=== PATIENT | male | born 1995 | race Caucasian/White ===

== ENCOUNTER 2021-06-01 10:57 | Outpatient (REF) | payer BC, SELFPAY ==
[2021-06-01 12:42] LABS: COVID-19 Test Positive (Negative)
== END 2021-06-01 10:58 | disposition home or self-care (01) ==
LOC: HO.LAB 10:57
PROVIDERS: Visit Provider Internal Medicine
DX: Z20.822 Contact with and (suspected) exposure to COVID-19 (principal)
CPT/HCPCS: 87635; C9803

== ENCOUNTER 2023-08-09 14:18 | Outpatient (AMB) | payer BC, SELFPAY ==
--- NOTE | 2023-08-09 14:32 | A.OFFPC_ITS ---
Vital Signs 08/09/23 14:34 Height 5 ft 11.06 in Weight 189 lb 4 oz BMI 26.3 BP 120/82 Blood Pressure Location Lt brachial Position Sitting Pulse 55 Pulse Source Pulse Oximeter Pulse Oximetry (%) 98 Oxygen Delivery Method Room Air Intake Visit Reasons: R/S from 07/05/23/ Intake Note: Patient is a new patient here to establish care for Blood in the stool and lower back pain. Transferring care from Dr. Denise. Medical records have been requested today. Process Controller Required: No Accompanied by: Self / Same As Patient Allergies No Known Allergies Allergy (Verified 08/09/23 14:49) Medication List - Last Reconciled 08/09/23 by Vik Lamar PA-C No Known Home Meds Tobacco use date assessed: 08/09/23 Dental Screening Dental Screen Date: 08/09/23 Did you have a dental visit in the last 12 months?: Yes Did you have a dental problem in the last 6 months where you did not have access to dental care?: No Was dental information given to patient?: Patient has dentist HPI R/S from 07/05/23/PE HPI Details Patient is a 28-year-old male here today for an annual physical. Patient does not have any significant past medical history. 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 He reports over the last few weeks noting some bright red blood per rectum. He does admit to having some constipation. He also reports having some localized lower midline back pain without any radicular symptoms. VAccine :report he is up to Tdap, UTD with COVID vaccine. 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 1. Little interest or pleasure in doing things: not at all 2. Feeling down, depressed, or hopeless: not at all 3. Trouble falling or staying asleep, or sleeping too much: not at all 4. Feeling tired or having little energy: not at all 5. Poor appetite or overeating: not at all 6. Feeling bad about yourself - or that you are a failure or have let yourself or your family down: not at all 7. Trouble concentrating on things, such as reading the newspaper or watching television: not at all 8. Moving or speaking so slowly that other people could have noticed. Or the opposite - being so fidgety or restless that you have been moving around a lot more than usual: not at all 9. Thoughts that you would be better off or of hurting yourself in some way: not at all Total score: 0 Depression Screening Interpretation: Negative Depression Screening Done: Yes 84024 - PHQ-9 Billing: Yes Source: Developed by Drs. Marcellus Mejia, Nicol Champion, Bill Buchanan and colleagues, with an educational chelsy from [facility]. Thrive Questionnaire Date Thrive assessed: 08/09/23 I am a: Patient What is your living situation today?: I have a steady place to live Within the past 12 months, did the food you bought not last and you didn't have the money to get more?: Never true Within the past 12 months, did you worry whether your food would run out before you got money to buy more?: Never true Do you have trouble paying for medicines?: No Do you have trouble getting transportation to medical appointments?: No Do you have trouble paying your heating and electricity bill?: No Do you have trouble taking care of your child, family member or friend?: No Do you have trouble with day-to-day activities such as bathing, preparing meals, shopping, managing finances, etc.?: No Are you currently unemployed and looking for a job?: No Are you interested in more education?: No Please select the resources that you would like help with: None Currently or been in a relationship where the following occur: no concerns reported THRIVE Score: 0 AUDIT C Alcohol Use Questionnaire (AUDIT-C) 1. How often do you have a drink containing alcohol?: Monthly or less 2. How many drinks containing alcohol do you have on a typical day when you are drinking?: 1 or 2 3. How often do you have six or more drinks on one occasion?: Never Total Score: 1 CRYSTAL-7 AMB Questionnaire CRYSTAL-7 Date CRYSTAL - 7 assessed: 08/09/23 Feeling nervous, anxious, or on edge: 0 = Not at all Not being able to stop or control worryin = Not at all Worrying too much about different things: 0 = Not at all Trouble relaxin = Not at all Being so restless that it is hard to sit still: 0 = Not at all Becoming easily annoyed or irritable: 0 = Not at all Feeling afraid as if something awful might happen: 0 = Not at all Total CRYSTAL-7 score (0-4 normal; 5-9 mild; 10-14 moderate; 15-21 severe): 0 Source: Developed by Drs. Marcellus Mejia, Nicol Champion, Bill Buchanan and colleagues, with an educational chelsy from [facility]. CRYSTAL-7 Assessment Billing CRYSTAL-7 Assessment Tool: CRYSTAL-7 Assessment 44233 Review of Systems Const Denies body aches, Denies chills, Denies excessive sweating, Denies fatigue, Denies fever(s) and Denies headache(s) Eyes Denies blurry vision ENT Denies dysphagia, Denies vertigo, Denies dizziness, Denies headache(s), Denies hearing loss and Denies tinnitus Card Denies chest pain, Denies chest pain with activity, Denies syncope, Denies irregular heart rhythm and Denies dyspnea Resp Denies chest congestion, Denies cough, Denies hemoptysis, Denies dyspnea and Denies wheezing GI Denies abdominal pain, Denies melena, Denies hematochezia, Denies coffee ground emesis, Denies dysphagia, Denies diarrhea, Denies nausea and Denies vomiting Denies difficulty urinating, Denies dysuria, Denies urinary frequency, Denies urinary hesitancy and Denies urinary urgency Musc Denies arthralgias, Denies limited range of motion, Denies muscle cramps and Denies muscle weakness Skin/Breast Denies rash and Denies skin ulcer Neuro Denies Abnormal speech present, Denies confusion, Denies vertigo, Denies dizziness, Denies syncope, Denies headache(s), Denies memory loss and Denies seizure-like activity Psych Denies anxiety, Denies confusion, Denies depression, Denies memory loss, Denies panic attacks and Denies paranoia Endo Denies excessive sweating, Denies fatigue, Denies flushing, Denies polydipsia and Denies polyuria Aller/Immun Denies wheezing Physical exam (Primary Care) Vital Signs: Last Vital Signs Pulse 55 08/09/23 14:34 BP 120/82 08/09/23 14:34 Pulse Ox 98 08/09/23 14:34 Oxygen Delivery Method Room Air 08/09/23 14:34 BMI result Body Mass Index 26.3 Tobacco/Smoking Status: Tobacco use Status Tobacco use date assessed 08/09/23 08/09/23 14:43 Patient Tobacco Use Status Never used Tobacco 08/09/23 14:54 e-Cigarette/Vaping Use Never Used 08/09/23 14:54 PHQ-9: PHQ-9 Score PHQ-9: Total score 0 08/09/23 14:50 Depression Screening Interpretation: Negative Thrive Assessment: Date of Thrive Assessment Date Thrive assessed 08/09/23 08/09/23 14:43 Currently or been in a relationship where the following occur: no concerns reported Const General: cooperative, comfortable, no acute distress, alert and awake; No confusion Orientation/consciousness: oriented to person, oriented to place, patient oriented x3 and No confusion HENMT Head: Yes normocephalic Ears: external ears normal and TM's normal bilaterally Face and sinus: No sinus tenderness Mouth: Normal oral and palatal mucosa present and tongue normal Teeth and gingiva: dentition normal and gingiva normal Throat: Yes posterior oropharynx normal, Yes tonsils normal and Yes uvula midline Eyes Conjunctivae: conjunctivae normal Sclerae: sclerae normal Pupils: Equal, round and reactive pupils present EOM: EOMs intact bilaterally Direct Ophthalmoscopy: No no photophobia Neck Neck: Yes no lymphadenopathy, No tender and Yes no JVD Thyroid: Thyroid normal Carotids: no bruits Chest Chest palpation & inspection: no tenderness Resp Effort & Inspection: normal respiratory effort, no audible wheezes, not labored and no stridor Auscultation: no crackles, no rales, no rhonchi and no wheezes Cardio Jugular venous distension: no JVD Rate: regular rate, not bradycardic and not tachycardic Rhythm: regular rhythm Bruits: no carotid bruits Peripheral pulses: Peripheral pulses 2+ throughout GI Inspection: Yes normal to inspection, No abdominal wall ecchymosis and No visible herniation Palpation (GI): Soft to palpation, nontender, no guarding, not rigid and No hepatosplenomegaly present Auscultation: normoactive bowel sounds General: Yes no CVA tenderness Back/Spine/Pelvis Back: no CVA tenderness and No back tenderness Cervical Spine: cervical ROM normal Thoracic/Lumbar Spine: thoracic and lumbar spine normal to inspection, straight leg raise negative bilaterally, No thoraco-lumbar ROM limited and No lumbar spinal tenderness Skin Lesions: no lesions Rashes: no rashes Wounds: no wounds Neuro General: oriented to person, oriented to place, patient oriented x3, CN's II-XI intact bilaterally and No confusion Cranial nerves: Yes Equal, round and reactive pupils present and Yes Normal accommodation reflex present Cognition (Neuro): normal cognition Speech: No Abnormal speech present Gait exam (Neuro): Normal gait present Motor exam (neuro): 5/5 motor strength present throughout Extrem Right upper extremity: full ROM; no cyanosis Left upper extremity: full ROM; no cyanosis Right lower extremity: no edema Left lower extremity: no edema Psych Appearance: grossly normal Mental Status: mental status grossly normal Affect: normal affect Attitude: cooperative Thought process: Normal thought process present Assessment and Plan Assessment & Plan (1) Annual physical exam: Code(s): Z00.00 - Encounter for general adult medical examination without abnormal findings (2) Low back pain: Code(s): M54.50 - Low back pain, unspecified Qualifiers: Back pain laterality: midline Chronicity: chronic Sciatica presence: without sciatica Qualified Code(s): M54.50 - Low back pain, unspecified; G89.29 - Other chronic pain Plan: Reports a 2 month history of dull localized lower lumbar spine pain. May be related to his long periods of sitting at work. He will try to modify his sitting at work. (3) Screening for diabetes mellitus (DM): Code(s): Z13.1 - Encounter for screening for diabetes mellitus (4) Blood per rectum: Code(s): K62.5 - Hemorrhage of anus and rectum Plan: Reports some bright red blood per rectum. He does report a little bit of rectal pain when passing stool. He does admit to some constipation. 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 Advised on dual softener, increase water and fiber in his diet. Orders: Orders XR lumbar spine 4V min 08/09/23 G89.29 - Other chronic pain, M54.50 - Low back pain, unspecified Comprehensive Benedict. Panel Fast 08/09/23 Z13.1 - Encounter for screening for diabetes mellitus Complete Blood Count no Diff 08/09/23 K62.5 - Hemorrhage of anus and rectum Medications: New docusate sodium (Colace) 100 mg PO DAILY 30 caps 1RF K62.5 - Hemorrhage of anus and rectum Coding Level of Care Code New Pt Prev Care 18-39yr([id number] Diagnoses Annual physical exam Z00.00 Chronic midline low back pain without sciatica M54.50; G89.29 Back pain laterality: midline Chronicity: chronic Sciatica presence: without sciatica Screening for diabetes mellitus (DM) Z13.1 Blood per rectum K62.5 Additional Codes CRYSTAL-7 Assessment Billing - CRYSTAL-7 Assessment Tool: CRYSTAL-7 Assessment 66661 ([id number])
[2023-08-09 14:34] VITALS: BP 120/82; PULSE 55; O2SAT 98; BMI 26.3
== END 2023-08-09 15:07 | disposition home or self-care (01) ==
PROVIDERS: Visit Provider Physician Assistant
DX: Z00.00 Encounter for general adult medical examination without abnormal findings (principal); M54.50 Low back pain, unspecified; G89.29 Other chronic pain; Z13.1 Encounter for screening for diabetes mellitus; K62.5 Hemorrhage of anus and rectum
CPT/HCPCS: 99385

== ENCOUNTER 2023-08-24 14:30 | Outpatient (REF) | payer BC, SELFPAY ==
--- NOTE | ~2023-08-24 | XR_ITS ---
EXAMINATION: XR LUMBOSACRAL SPINE WITH OBLIQUES CLINICAL INFORMATION: Lower back pain. COMPARISON: None available. TECHNIQUE: AP, both oblique, and lateral views of the lumbar spine. Lateral view of the lumbosacral junction. FINDINGS: Vertebral body heights are normal. There is a very mild lumbar levoscoliosis. At L4-L5, there is mild posterior disc space narrowing. At L5-S1, there is a 7 mm anterolisthesis. A bilateral L5 spondylolysis defect is questioned. The paravertebral soft tissues are unremarkable. XR/XR lumbar spine 4V min IMPRESSION: 1. There is mild degenerative disc disease at L4-L5, and moderately severe degenerative disc disease seen at L5-S1. 2. A bilateral L5 spondylolysis defect is questioned. This could be further evaluated with CT or MRI, if clinically indicated. 3. There is a very mild lumbar levoscoliosis.
[2023-08-24 15:40] LABS: Hematocrit 43.1 % (42.0-52.0); Mean Corpuscular HGB Conc 34.8 g/dl (31.0-36.0); Mean Corpuscular Hemoglobin 29.6 pg (27.0-33.0); Mean Platelet Volume 9.7 fL (9.4-12.4); Platelet Count 221 X10*3/uL (160-400); Red Blood Count 5.07 X10*6/uL (4.60-5.80); Red Cell Distribution Width 12.4 % (11.0-16.0); White Blood Count 5.4 X10*3/uL (4.8-10.8)
[2023-08-24 16:11] LABS: Alanine Aminotransferase 17 U/L (0-40); Albumin Level 4.6 g/dL (3.5-5.0); Alkaline Phosphatase 58 U/L (39-117); Anion Gap 9 (12-20); Aspartate Amino Transferase 18 U/L (5-37); Bilirubin Total 0.7 mg/dL (0.0-1.0); Blood Urea Nitrogen 11 mg/dL (9-16); Calcium 9.3 mg/dL (8.4-10.2); Carbon Dioxide 29 mmol/L (22-29); Chloride 105 mmol/L (96-108); Estimated Glomerular Filt Rate > 60; Glucose Fasting 77 mg/dL (60-99); Potassium 3.4 mmol/L (3.3-5.1); Sodium 140 mmol/L (135-145)
== END 2023-08-24 14:31 | disposition home or self-care (01) ==
LOC: HO.XRAY 14:30
PROVIDERS: PCP Physician Assistant; Visit Provider Physician Assistant
DX: Z13.1 Encounter for screening for diabetes mellitus (principal); K62.5 Hemorrhage of anus and rectum; M54.50 Low back pain, unspecified; G89.29 Other chronic pain
CPT/HCPCS: 36415; 72110; 80053; 85027

== ENCOUNTER 2023-09-07 14:26 | Outpatient (REF) | payer BC, SELFPAY ==
[2023-09-10 13:39] LABS: Anti Nuclear Antibody Screen NEGATIVE (NEGATIVE)
[2023-09-10 14:39] LABS: Cyclic Citrullinated Peptide <16 UNITS
[2023-09-10 21:47] LABS: Anti DNA DS Antibody <1 IU/mL
[2023-09-12 07:39] LABS: HLA B27 Negative (Negative)
== END 2023-09-07 14:27 | disposition home or self-care (01) ==
LOC: HO.LAB 14:26
PROVIDERS: PCP Physician Assistant; Visit Provider Physician Assistant
DX: M51.36 Other intervertebral disc degeneration, lumbar region (principal)
CPT/HCPCS: 36415; 86038; 86200; 86225; 86812

== ENCOUNTER 2023-09-21 14:55 | Outpatient (AMB) | payer BC, SELFPAY ==
--- NOTE | 2023-09-21 14:56 | MHC.OFFVIS ---
Vital Signs 09/21/23 15:00 Height 5 ft 10 in Weight 195 lb 3 oz BMI 28.0 BP 152/86 H Blood Pressure Location Rt brachial Position Sitting Pulse 64 Pulse Source Pulse Oximeter Pulse Oximetry (%) 100 Oxygen Delivery Method Room Air Intake Visit Reasons: DISC DEGERNERATION, LUMBAR REGION Intake Note: Pain today 3/10 Rn Infusion Required: No Accompanied by: Self / Same As Patient Allergies No Known Allergies Allergy (Verified 09/21/23 14:59) HPI HPI DISC DEGERNERATION, LUMBAR REGION: Details: Patient is a 28 years old male presents today for initial evaluation of low back pain. Denies any recent trauma, injury or falls. 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 Patient reports his typical work day involves some bending, standing, walking and prolonged sitting. He also reports weight lifting, hockey, running track, football in middle and high school years, hockey and more recently restarting weight lifting after college. His back pain is localized to his low back midline area without radiation into his lower extremities. Lumbar spine xray showed mild degenerative disc disease at L4-L5, and moderately severe degenerative disc disease seen at L5-S1. A bilateral L5 spondylolysis defect is questioned. Patient has pending lumbar spine MRI and physical therapy which have not been scheduled yet. At this time, his low back pain is mild but constant, rates it at 3/10 and usually increases to 5-6/10 by the evening. Denies any conservative treatments at home. Pain affects his daily activities and functioning, sleep and social interactions. Denies any fever, chills, abdominal or groin pain, weakness, foot drop, bladder or bowel dysfunction or saddle anesthesia. Location: Lower back, midline Duration: Chronic pain since early high school Characteristics of symptom or complaint: Dull, aching, sharp, stabbing Aggravating or associated factors: Movements, lifting, twisting, bending Relieving factors: Bending, stretching, flexing forward, heating pad Treatment: Home exercise program [facility] Medical History (Updated 09/24/23 @ 08:40 by JAC Robin) Low back pain Surgical History S/P wisdom tooth extraction Family History Father History of stroke, Onset Age: 50 Paternal Grandfather Brain hemorrhage due to vascular malformation Aneurysm Social History Housing: House Alcohol intake: current Alcohol intake frequency: a few times a month Alcohol type: beer Patient Tobacco Use Status: Never used Tobacco e-Cigarette/Vaping Use: Never Used service: No Current occupational status: employed and student 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 Alert and oriented. Mood and affect appropriate. Follows and participates in conversation appropriately. Respiratory effort is unlabored. No cough. Able to transition from sit to stand unassisted. Ambulates with bilaterally normal heel strike and toe off. Back/Spine/Pelvis Other: Patient is able to walk and stand on heels and tip toes with no difficulties demonstrating good motor tone. No limping. Can flex forward to 70-75 degrees and extend to 5-10 degrees before experiencing lumbar pain. Demonstrates 5/5 strength of quadriceps bilaterally as well as flexion/dorsiflexion of bilateral feet against resistance. 2+ pedal pulses bilaterally. Straight leg rise with dorsiflexion negative bilaterally. +2 patellar and achilles reflexes bilaterally. Facet loading test positive bilaterally. Rashawn sign, Buck?s, Pelvic compression and Stinchfield tests are negative bilaterally. No groin pain with I/E hip rotations. Valsalva maneuver negative. Cervical Spine: cervical ROM normal, cervical muscular tenderness and No Cervical spine tenderness Thoracic/Lumbar Spine: thoracic and lumbar spine normal to inspection, No Thoracic/lumbar spine scar(s), Lasegue's sign negative, straight leg raise negative bilaterally, pain with thoraco-lumbar ROM, paraspinal muscle tenderness, Thoracic/lumbar scoliosis (mild), No thoracic spinal tenderness and lumbar spinal tenderness (L4-S1) Pelvis: no buttock tenderness Sacroiliac joints: bilaterally nontender Neuro General: Normal light touch and pain sensation, CN's II-XI intact bilaterally and deep tendon reflexes 2+ bilaterally Gait exam (Neuro): Normal gait present and No Assistive device used Motor exam (neuro): 5/5 motor strength present throughout, no tremor noted and Motor abnormalities not present Sensory Exam: No Sensory deficit (Neuro) Results Reviewed Results Reviewed: XR LUMBOSACRAL SPINE WITH OBLIQUES 08/24/23 CLINICAL INFORMATION: Lower back pain. FINDINGS: Vertebral body heights are normal. There is a very mild lumbar levoscoliosis. At L4-L5, there is mild posterior disc space narrowing. At L5-S1, there is a 7 mm anterolisthesis. A bilateral L5 spondylolysis defect is questioned. The paravertebral soft tissues are unremarkable. IMPRESSION: 1. There is mild degenerative disc disease at L4-L5, and moderately severe degenerative disc disease seen at L5-S1. 2. A bilateral L5 spondylolysis defect is questioned. This could be further evaluated with CT or MRI, if clinically indicated. 3. There is a very mild lumbar levoscoliosis. Assessment & Plan Assessment & Plan (1) Low back pain: Code(s): M54.50 - Low back pain, unspecified Category: Medical Qualifiers: Back pain laterality: midline Chronicity: chronic Sciatica presence: without sciatica Qualified Code(s): M54.50 - Low back pain, unspecified; G89.29 - Other chronic pain (2) Lumbar degenerative disc disease: Code(s): M51.36 - Other intervertebral disc degeneration, lumbar region Category: Medical Plan Recommend to start formal PT and establish HEP for low back pain with DDD and discogenic pain components. Avoid heavy weight lifting at this time. Pending lumbar spine MRI and PT are pending, were ordered by PCP. Discussed conservative measures for low back pain, including Tylenol, NSAIDs, head/ice therapy, gentle stretching and strengthening exercises , good posture, activity modifications, alternate sitting and standing at work, well balanced diet and adequate hydration. Patient will return to the clinic to discuss results of the MRI findings when it is done and consider interventional therapy as indicated.?Follow up as needed. Medications: New lidocaine 5% 1 patch topical DAILY 30 ea 0RF pain 30 days G89.29 - Other chronic pain, M51.36 - Other intervertebral disc degeneration, lumbar region, M54.50 - Low back pain, unspecified Coding Level of Care Code New Pt Level 4 (53734) Diagnoses Chronic midline low back pain without sciatica M54.50; G89.29 Back pain laterality: midline Chronicity: chronic Sciatica presence: without sciatica Lumbar degenerative disc disease M51.36
[2023-09-21 15:00] VITALS: BP 152/86; PULSE 64; O2SAT 100; BMI 28.0
== END 2023-09-21 15:33 | disposition home or self-care (01) ==
PROVIDERS: PCP Physician Assistant; Visit Provider Nurse Practitioner Family
DX: M54.50 Low back pain, unspecified (principal); G89.29 Other chronic pain; M51.36 Other intervertebral disc degeneration, lumbar region
CPT/HCPCS: 99204

== ENCOUNTER → 2023-09-21 14:55 | Outpatient (BNVA) | payer BC, SELFPAY | PROVIDERS: PCP Physician Assistant; Visit Provider Nurse Practitioner Family ==

== ENCOUNTER 2023-11-07 17:00 | Outpatient (RCR) | payer BC, SELFPAY ==
--- NOTE | 2023-10-05 16:37 | MHC.PT.EP ---
[facility] [place] Office [place] Office [place] Office [address] [phone] F: [phone] F: [phone] F: [phone] F: [phone] Physical Therapy Plan of Care Date of Evaluation: 10/05/23 Date of Surgery: NA Diagnosis: DEGENERATIVE DISC DISEASE Assessment: Pt IS 28 YO M REFERRED TO PT BY DIEGO QUINN WITH DDD (PER XRAYREPORT). PRESENTS WITH TIGHT HS, SOME DECREASED CORE STRENGTH AND BACK PAIN. Pt ALREADY WORKS OUT AND DOES YOGA. COULD BENEFIT FROM PT 1/WK TO REV CURRENT EXS/STRETCHES FOR MODIFICATION/IMPROVEMENT TO HELP WITH BACK PAIN Frequency and Duration: The patient will be seen 1X/WK X 4 WKS Short Term Goals: 1. INCREASED AWARENESS BACK CARE AND POSTURE 2. Pt TO PERFORM 2-3 TASKS WITH PROPER BODY MECH Snf Goals: 1. I HEP WITH DC EX PLAN 2. DECREASED BACK PAIN AT LEAST 50% WITH ADLS 3. IMPROVED MOD OSWESTRY ( AT SOC) Treatment Plan: Modalities to reduce pain, spasms and effusion. Manual therapy to restore motion and function. Therapeutic exercise to improve strength and flexibility. Neuromuscular re-education for posture and balance. Therapeutic activities to return to functional activities of daily living. Electronically signed by: MILIND MARTINEZ PT Please sign and return to therapist. Thank you for your referral.
--- NOTE | 2023-12-24 14:55 | MHC.PT.DC ---
[facility] [place] Office [place] Office [place] Office [address] [phone] F: [phone] F: [phone] F: [phone] F: [phone] Physical Therapy Discharge Report Diagnosis: DEGENERATIVE DISC DISEASE Date of Surgery: NA Date of Evaluation: 10/05/23 Date of Discharge: 11/07/23 Treatments to Date: 4 Cancellations to Date: No Shows to Date: Discharge Status: Achieved Goals Improved Function Independent with HEP Discharge Summary: PER LAST PT APPT ON 11/07/23 Pt independent w/HEP and Gym routine w/proper form Electronically signed by: MILIND MARTINEZ PT Please sign and return to therapist. Thank you for your referral.
== END 2023-12-24 14:56 | disposition home or self-care (01) ==
LOC: HO.PT 17:00
PROVIDERS: PCP Physician Assistant; Visit Provider Physician Assistant
DX: M51.9 Unspecified thoracic, thoracolumbar and lumbosacral intervertebral disc disorder (principal); M51.36 Other intervertebral disc degeneration, lumbar region
CPT/HCPCS: 97110; 97161; 97530; 97535

== ENCOUNTER 2024-08-11 14:13 | Outpatient (AMB) | payer BC, SELFPAY ==
--- NOTE | 2024-08-11 14:20 | MHC.PC.OV ---
Vital Signs 08/11/24 14:21 Height 5 ft 10 in Weight 195 lb BMI 28.0 BP 126/82 Blood Pressure Location Lt brachial Position Sitting Pulse 52 Pulse Source Pulse Oximeter Temp 97.3 F Temp Source Temporal Artery Scan Pulse Oximetry (%) 100 Oxygen Delivery Method Room Air Intake Visit Reasons: ANNUAL Intake Note: Patient is here today for a physical. Director Of Agriculture Required: No Accompanied by: Self / Same As Patient Allergies No Known Allergies Allergy (Verified 08/11/24 14:32) Medication List - Last Reconciled 08/11/24 by Vik Lamar PA-C docusate sodium (Colace) 100 mg PO DAILY lidocaine 5% 1 patch topical DAILY 30 days multivitamin 1 tab PO DAILY Tobacco use date assessed: 08/11/24 Dental Screening Dental Screen Date: 08/11/24 Did you have a dental visit in the last 12 months?: Yes Did you have a dental problem in the last 6 months where you did not have access to dental care?: No Was dental information given to patient?: Patient has dentist HPI ANNUAL HPI Details Patient is a 29-year-old male here today for an annual physical. Patient does not have any significant past medical history. Has graduated from [employer]. . Patient has no particular past medical history with the exception of lower lumbar spine vertebral disease. Has followed up with pain management in his doing well. He still is physically active and does not have to take regular medication for pain. VAccine :Needs Tdap, UTD with COVID vaccine. 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 1. Little interest or pleasure in doing things: several days 2. Feeling down, depressed, or hopeless: several days 3. Trouble falling or staying asleep, or sleeping too much: several days 4. Feeling tired or having little energy: several days 5. Poor appetite or overeating: more than half the days 6. Feeling bad about yourself - or that you are a failure or have let yourself or your family down: several days 7. Trouble concentrating on things, such as reading the newspaper or watching television: not at all 8. Moving or speaking so slowly that other people could have noticed. Or the opposite - being so fidgety or restless that you have been moving around a lot more than usual: not at all 9. Thoughts that you would be better off or of hurting yourself in some way: several days Total score: 8 Depression Screening Interpretation: Positive Depression Screening Follow-up: Existing condition and Declines treatment Depression Screening Done: Yes 75417 - PHQ-9 Billing: Yes Source: Developed by Drs. Marcellus Mejia, Nicol Champion, Bill Buchanan and colleagues, with an educational chelsy from [employer]. Thrive Questionnaire Date Thrive assessed: 08/09/24 I am a: Patient What is your living situation today?: I have a steady place to live Within the past 12 months, did the food you bought not last and you didn't have the money to get more?: Never true Within the past 12 months, did you worry whether your food would run out before you got money to buy more?: Never true Do you have trouble paying for medicines?: No Do you have trouble getting transportation to medical appointments?: No Do you have trouble paying your heating and electricity bill?: No Do you have trouble taking care of your child, family member or friend?: No Do you have trouble with day-to-day activities such as bathing, preparing meals, shopping, managing finances, etc.?: No Are you currently unemployed and looking for a job?: No Are you interested in more education?: Yes Please select the resources that you would like help with: None Currently or been in a relationship where the following occur: Controlled Emotionally THRIVE Score: 1 AUDIT C Alcohol Use Questionnaire (AUDIT-C) 1. How often do you have a drink containing alcohol?: 2-4 times a month 2. How many drinks containing alcohol do you have on a typical day when you are drinking?: 5 or 6 3. How often do you have six or more drinks on one occasion?: Monthly Total Score: 6 CRYSTAL-7 AMB Questionnaire CRYSTAL-7 Date CRYSTAL - 7 assessed: 08/09/23 Feeling nervous, anxious, or on edge: 1 = Several days Not being able to stop or control worryin = Several days Worrying too much about different things: 1 = Several days Trouble relaxin = Several days Being so restless that it is hard to sit still: 0 = Not at all Becoming easily annoyed or irritable: 2 = More than half the days Feeling afraid as if something awful might happen: 1 = Several days Total CRYSTAL-7 score (0-4 normal; 5-9 mild; 10-14 moderate; 15-21 severe): 7 Source: Developed by Drs. Marcellus Mejia, Nicol Champion, Bill Buchanan and colleagues, with an educational chelsy from [employer]. CRYSTAL-7 Assessment Billing CRYSTAL-7 Assessment Tool: CRYSTAL-7 Assessment 21698 Review of Systems Const Denies body aches, Denies chills, Denies excessive sweating, Denies fatigue, Denies fever(s) and Denies headache(s) Eyes Denies blurry vision ENT Denies dysphagia, Denies vertigo, Denies dizziness, Denies headache(s), Denies hearing loss and Denies tinnitus Card Denies chest pain, Denies chest pain with activity, Denies syncope, Denies irregular heart rhythm and Denies dyspnea Resp Denies chest congestion, Denies cough, Denies hemoptysis, Denies dyspnea and Denies wheezing GI Denies abdominal pain, Denies melena, Denies hematochezia, Denies coffee ground emesis, Denies dysphagia, Denies diarrhea, Denies nausea and Denies vomiting Denies difficulty urinating, Denies dysuria, Denies urinary frequency, Denies urinary hesitancy and Denies urinary urgency Musc Denies arthralgias, Denies limited range of motion, Denies muscle cramps and Denies muscle weakness Skin/Breast Denies rash and Denies skin ulcer Neuro Denies Abnormal speech present, Denies confusion, Denies vertigo, Denies dizziness, Denies syncope, Denies headache(s), Denies memory loss and Denies seizure-like activity Psych Denies anxiety, Denies confusion, Denies depression, Denies memory loss, Denies panic attacks and Denies paranoia Endo Denies excessive sweating, Denies fatigue, Denies flushing, Denies polydipsia and Denies polyuria Aller/Immun Denies wheezing Physical exam (Primary Care) Vital Signs: Last Vital Signs Temp 97.3 F 08/11/24 14:21 Pulse 52 08/11/24 14:21 BP 126/82 08/11/24 14:21 Pulse Ox 100 08/11/24 14:21 Oxygen Delivery Method Room Air 08/11/24 14:21 BMI result Body Mass Index 28.0 Tobacco/Smoking Status: Tobacco use Status Tobacco use date assessed 08/11/24 08/11/24 14:27 Patient Tobacco Use Status Never used Tobacco 08/11/24 14:37 e-Cigarette/Vaping Use Never Used 08/11/24 14:37 PHQ-9: PHQ-9 Score PHQ-9: Total score 8 08/11/24 14:53 Depression Screening Interpretation: Positive Depression Screening Follow-up: Existing condition and Declines treatment Thrive Assessment: Date of Thrive Assessment Date Thrive assessed 08/09/24 08/11/24 14:27 Currently or been in a relationship where the following occur: Controlled Emotionally Const General: cooperative, comfortable, no acute distress, alert and awake; No confusion Orientation/consciousness: oriented to person, oriented to place, patient oriented x3 and No confusion HENMT Head: Yes normocephalic Ears: external ears normal and TM's normal bilaterally Face and sinus: No sinus tenderness Mouth: Normal oral and palatal mucosa present and tongue normal Teeth and gingiva: dentition normal and gingiva normal Throat: Yes posterior oropharynx normal, Yes tonsils normal and Yes uvula midline Eyes Conjunctivae: conjunctivae normal Sclerae: sclerae normal Pupils: Equal, round and reactive pupils present EOM: EOMs intact bilaterally Direct Ophthalmoscopy: No no photophobia Neck Neck: Yes no lymphadenopathy, No tender and Yes no JVD Thyroid: Thyroid normal Carotids: no bruits Chest Chest palpation & inspection: no tenderness Resp Effort & Inspection: normal respiratory effort, no audible wheezes, not labored and no stridor Auscultation: no crackles, no rales, no rhonchi and no wheezes Cardio Jugular venous distension: no JVD Rate: regular rate, not bradycardic and not tachycardic Rhythm: regular rhythm Bruits: no carotid bruits Peripheral pulses: Peripheral pulses 2+ throughout GI Inspection: Yes normal to inspection, No abdominal wall ecchymosis and No visible herniation Palpation (GI): Soft to palpation, nontender, no guarding, not rigid and No hepatosplenomegaly present Auscultation: normoactive bowel sounds General: Yes no CVA tenderness Back/Spine/Pelvis Back: no CVA tenderness and No back tenderness Cervical Spine: cervical ROM normal Thoracic/Lumbar Spine: thoracic and lumbar spine normal to inspection, straight leg raise negative bilaterally, No thoraco-lumbar ROM limited and No lumbar spinal tenderness Skin Lesions: no lesions Rashes: no rashes Wounds: no wounds Neuro General: oriented to person, oriented to place, patient oriented x3, CN's II-XI intact bilaterally and No confusion Cranial nerves: Yes Equal, round and reactive pupils present and Yes Normal accommodation reflex present Cognition (Neuro): normal cognition Speech: No Abnormal speech present Gait exam (Neuro): Normal gait present Motor exam (neuro): 5/5 motor strength present throughout Extrem Right upper extremity: full ROM; no cyanosis Left upper extremity: full ROM; no cyanosis Right lower extremity: no edema Left lower extremity: no edema Psych Appearance: grossly normal Mental Status: mental status grossly normal Affect: normal affect Attitude: cooperative Thought process: Normal thought process present Immunizations Boostrix Tdap 2.5 Lf unit-8 mcg-5 Lf/0.5 mL intramuscular syringe Performing Provider: Vik Lamar PA-C [place] [facility] [place] [facility] Administered by: BERNADINE Lundberg on 08/11/24 14:53 Dose Route Admin Location Dispensed Lot Number Expiration Date [facility] [place] Infection Control Practitioner 0.5 mL IM Left Deltoid 0.5 mL [id number] 09/13/26 [id number] [employer] VIS Given Date VIS Provided VIS Publication Date 08/11/24 Single Vaccine 20 Eligibility Eligibility Date Funding Source Not [facility] Eligible 08/11/24 Private Coding Level of Care Code Est Pt Prev Care 18-39y(47254) Diagnoses Annual physical exam Z00.00 Screening for diabetes mellitus (DM) Z13.1 Degeneration of intervertebral disc of lumbar region with discogenic back pain and lower extremity pain M51.362 Disc-related pain type: discogenic back pain and lower extremity pain Anxiety F41.9 Additional Codes CRYSTAL-7 Assessment Billing - CRYSTAL-7 Assessment Tool: CRYSTAL-7 Assessment 99009 ([id number]) PHQ-9 - 03493 - PHQ-9 Billing: Yes ([id number]) Assessment & Plan Assessment & Plan (1) Annual physical exam: Code(s): Z00.00 - Encounter for general adult medical examination without abnormal findings Category: Medical Plan: As per HPI (2) Screening for diabetes mellitus (DM): Code(s): Z13.1 - Encounter for screening for diabetes mellitus Category: Medical Plan: As per HPI (3) Lumbar degenerative disc disease: Code(s): M51.36 - Other intervertebral disc degeneration, lumbar region Category: Medical Qualifiers: Disc-related pain type: discogenic back pain and lower extremity pain Qualified Code(s): M51.362 - Other intervertebral disc degeneration, lumbar region with discogenic back pain and lower extremity pain Plan: Has moderate to severe L5-S1 lumbar spine disease. Has followed up with pain management and doing well. Does use lidocaine patches from time to time. He continues to run and lift weights though listens to his body (4) Anxiety: Code(s): F41.9 - Anxiety disorder, unspecified Category: Medical Plan: Patient's CRYSTAL-7 score positive for anxiety which has been existing condition for him. He is not interested in any medications or mental health therapy at this time. Orders: Orders TDaP Immunization Today Z23 - Encounter for immunization
[2024-08-11 14:21] VITALS: BP 126/82; PULSE 52; TEMP 36.3; O2SAT 100; BMI 28.0
--- OUTSIDE RECORDS SUMMARY | 2024-08-11 16:40 | XMS_ITS | Encounter Summary ---
Author Organization [facility] Address [address] [place] [phone] Phone Care Team Providers Care Scaling Machine Operator Name Role Phone Santiago Denise MD Primary Care Provider Unavailabl e Encounter Details Date Type Department Care Team (Late st Contact Info) Description 04/30/2014 Documentation [facility] [place] Family Medicine [address] [place] [address] Family Medicine, Physician [address] [place], [place] [id number] Social History Tobacco Use Types Packs/Day Years Used Date Smoking Tobacco: Never Assessed Sex and Gender Information Value Date Recorded Sex Assigned at Not on file Legal Sex Male 5:15 PM EDT Gender Identity Not on file Sexual Orientation Not on file documented as of this encounter Plan of Treatment Not on file documented as of this encounter Visit Diagnoses Not on filedocumented in this encounter Care Teams Scaling Machine Operator Relationship Specialty Start Date End Date Santiago Denise MD PCP - General 01/05/17 documented as of this encounter
--- OUTSIDE RECORDS SUMMARY | 2024-08-11 16:40 | XMS_ITS | Clinical Summary ---
Author Organization [facility] Address [address] [place] [phone] Phone Care Team Providers Care Burglar Alarm Superintendent Name Role Phone Santiago Denise MD Primary Care Provider Unavailabl e Allergies No known active allergies Medications No known medications Active Problems No known active problems Immunizations Immunization Administration Dates Next Due DTaP 5 04/25/2001, 9,1997, 998,1997 HPV Vaccine 9 Valent 01/04/2017,12/23/2015 Hep A, ped/adol 12/11/2013,11/17/2010 Hep B, ped/adol 01/18/1998,1997,1997 Hib (PRP-T) 07/29/1998, 8,1997, 998 IPV 04/25/2001,1997,1997 MMR 04/17/2002,04/29/1998 Meningococcal Conj (Menactra) MCV4P 12/18/2014,0 09/21/2009 OPV 1997 Tdap 09/21/2009 Varicella 09/21/2009,04/18/1999 Family History Medical History Relation Name Comments Hyperlipidemia Father Hypertension Father Stroke Father No Known Problems Maternal Grandfather No Known Problems Maternal Grandmother No Known Problems Mother Dementia Paternal Grandmother Relation Name Status Comments Brother Alive Brother: Alive and well Father Alive Maternal Grandfather Alive Maternal Grandmother Alive Mother Alive Other Family history of *Dental caries, No family history of *Sudden /[place] under 55, No family history of *Heart Disease, Family history of *CVA/Stroke Paternal Grandfather Paternal Grandmother Alive Sister 1 Alive Sister: Alive a nd well, Alive and well Sister 2 Alive Sister: Alive a nd well, Alive and well Social History Tobacco Use Types Packs/Day Years Used Date Smoking Tobacco: Never Comments:Never smoker Sex and Gender Information Value Date Recorded Sex Assigned at Not on file Legal Sex Male 5:15 PM EDT Gender Identity Not on file Sexual Orientation Not on file Last Filed Vital Signs Vital Sign Reading Time Taken Comments Blood Pressure 107/66 01/24/2018 5:05 PM EDT Pulse 76 01/24/2018 5:05 PM EDT Temperature 36.8 ??C (98.3 ??F) 01/24/2018 5:05 PM ED T Respiratory Rate - - Oxygen Saturation - - Inhaled Oxygen Concentration - - Weight 82.2 kg (181 lb 3.2 oz) 01/24/2018 5:05 P M EDT Height 179.7 cm (5' 10.75 ) 01/24/2018 5:05 PM E DT Body Mass Index 25.45 01/24/2018 5:05 PM EDT Plan of Treatment Health Maintenance Due Date Last Done Comments HPV Vaccines (3 - Male 3-dose series) 03/29/2017 01/04/2017, 12/23/2015 DTaP,Tdap,and Td Vaccines (7 - Td or Tdap) 09/22/2019 09/21/2009, 04/25/2001, 11/18/1998, Additional history exists Influenza Vaccines (#1) 2023 COVID-19 Vaccine ( season) 2024 Hepatitis B Vaccines Completed 01/18/1998, 1997, 1997 HIB Vaccines Completed 07/29/1998, 05/1997, 1997, Additional history exists IPV Vaccines Completed 04/25/2001, 05/1997, 1997, Additional history exists MMR Vaccines Completed 04/17/2002, 04/29/1998 Varicella Vaccines Completed 09/21/2009, 04/18/1999 Hepatitis A Vaccines Completed 12/11/2013, 11/18/19 11 Meningococcal Vaccine Completed 12/18/2014, 010 Men B Vaccine Aged Out No longer elig ible based on patient's age to complete this topic Pneumococcal Vaccine Aged Out No long er eligible based on patient's age to complete this topic Insurance [facility] PPO Care Teams Burglar Alarm Superintendent Relationship Specialty Start Date End Date Santiago Denise MD PCP - General 01/05/17
--- OUTSIDE RECORDS SUMMARY | 2024-08-11 16:40 | XMS_ITS | Encounter Summary ---
Author Organization [facility] Address [address] [place] [phone] Phone Care Team Providers Care Patient Support Associate Name Role Phone Santiago Denise MD Primary Care Provider Unavailabl e Encounter Details Date Type Department Care Team (Late st Contact Info) Description 01/11/2017 Conversion Encounter [facility] - [address] [address] Social History Tobacco Use Types Packs/Day Years [...] on filedocumented in this encounter Care Teams Patient Support Associate Relationship Specialty Start Date End Date Santiago Denise MD PCP - General 01/05/17 documented as of this encounter
== END 2024-08-11 15:01 | disposition home or self-care (01) ==
LOC: HO.HMCH 14:14
PROVIDERS: PCP Physician Assistant; Visit Provider Physician Assistant
DX: Z00.00 Encounter for general adult medical examination without abnormal findings (principal); Z13.1 Encounter for screening for diabetes mellitus; M51.362 Other intervertebral disc degeneration, lumbar region with discogenic back pain and lower extremity pain; F41.9 Anxiety disorder, unspecified; Z23 Encounter for immunization

== ENCOUNTER → 2024-08-11 14:13 | Outpatient (BNVA) | payer BC, SELFPAY | PROVIDERS: PCP Physician Assistant; Visit Provider Physician Assistant | DX: Z00.00 Encounter for general adult medical examination without abnormal findings (principal); Z23 Encounter for immunization; M51.362 Other intervertebral disc degeneration, lumbar region with discogenic back pain and lower extremity pain; F41.9 Anxiety disorder, unspecified | CPT/HCPCS: 90471; 90715; 96127 ==